=== PATIENT | female | born 1995 | race African-American/Black ===

== ENCOUNTER → 2024-05-04 15:29 | Outpatient (REF) | payer OTHER, SELFPAY | LOC: RAD 15:29 | PROVIDERS: ATTENDING PHYSICIAN Nurse Practitioner Family | DX: Z13.9 Encounter for screening, unspecified (principal) | CPT/HCPCS: 71046 ==

== ENCOUNTER 2024-08-09 10:39 | Emergency (ER) | payer SELFPAY ==
[2024-08-09 10:49] VITALS: BP 127/86
--- NOTE | 2024-08-09 11:17 | ED.GENMED ---
History of Present Illness
General
Chief Complaint: Throat Problem
Source: patient
Exam Limitations: none
Time Seen by Provider: 08/09/24 10:55
Nursing documentation reviewed up to this point in time: agreed with
History of Present Illness
History of Present Illness:
28 y/o F with here with sore throat x 2 days, worse on R and now with R ear pain. she has not had cough or fever
pt's voice is slightly muffled
she says she is having pain with swallowing her secretions but she is not drooling
no h/o [employer]
has had strep throat several times
no chest pain, vomiting, sob
took iburpfoen 5 am
Past History
Past History
ED Past Medical History: Other (strep throat)
Social History
Tobacco: Non-smoker
Alcohol: None
Drug: None
Personal: Single
Living: with family
Employment: Employed
Review of Systems
Review of Systems
Allergies reviewed?: Yes
All Other Systems: Not applicable
Phy Exam
Physical Exam
Physical Exam:
GENERAL: Alert , in no apparent distress
EYE: pupils equal and reactive
NECK: Supple bilateral tender anterior cervical lymphadenopathy
ENT: b/l TM s clear, pharynx erythematous, 3+ tonsils, very slight fullness to the right peritonsillar region, no uvular deviation, bilateral exudate, slight voice muffling, tolerating secretions, swallowing normally
CARDIAC: Regular rate and rhythm, no edema
LUNGS: Clear breath sounds bilaterally, no acute respiratory distress, no wheezes/rales/rhonchi, occ cough
ABDOMEN: Soft, without focal tenderness, no r/g, no cvat, normal bowel sounds
NEUROLOGICAL: Alert and oriented, no focal neuro deficits
SKIN: Warm and dry, skin intact.
MUSCULOSKELETAL: No edema, well perfused.
PSYCH: Normal and appropriate interaction.
Course
Orders/Labs/Results
Orders:
Orders
08/09/24 11:17
0.9% Sodium Chloride 1000 ml [Nss] 1,000 ml IV BOLUS
Dexamethasone Sod Phosphate [Decadron] 10 mg IV NOW STA
Ketorolac [Toradol] 30 mg IV NOW STA
08/09/24 11:31
Rapid Strep Group A Urgent
RAVI Source: Throat/Pharynx
Specimen Description:
Date Specimen was Collected: 08/09/24
Time Specimen was Collected: 11:23
08/09/24 12:10
COVID-19 Antigen Urgent
Source: Nasal Swab
Influenza A+B Rapid Molecular Urgent
RAVI Source: Nasal Swab
Specimen Description:
08/09/24 12:44
Amoxicillin 875 mg/Clav 125 mg [Augmentin 875 mg/125 mg] 1 tablet PO NOW STA
Vital Signs
Initial and Last Documented VS:
Initial Vital Signs
Temp Pulse Resp BP Pulse Ox
36.6 C 85 18 127/86 100
08/09/24 10:49 08/09/24 10:49 08/09/24 10:49 08/09/24 10:49 08/09/24 10:49
Last Documented Vital Signs
Temp Pulse Resp BP Pulse Ox
37.4 C 85 18 142/80 99
08/09/24 13:03 08/09/24 13:03 08/09/24 13:03 08/09/24 13:03 08/09/24 13:03
MDM/Problems Addressed
Differential Diagnosis Includes:
airplane captain, strep, pharyngitis, tonsillitis, viral
MDM/Problems Addressed:
28-year-old female here with sore throat more on the right than the left radiating into her right ear since yesterday. No fever, no cough. Tender swollen glands. On exam she is tolerating secretions well, has a very mild muffling of her voice
with a very minimal asymmetry to the peritonsillar region on the right being slightly zhang but she has bilateral exudate on her tonsils and no uvular deviation,
Her rapid strep was negative but she Centor criteria 3 out of 4 and flu and COVID are negative. I believe she does have the possibility of developing early peritonsillar abscess and will cover her with Augmentin. She was given steroids, Toradol,
IV fluids. Will send her home on a Medrol Dosepak as well.
*Critical Care Note
Total Time (30-74mins, 75-104mins- exclusive of procedures): Not Applicable
ED Attending Note
-
Portions of this chart may have been created with voice recognition software.� Occasional wrong word or��sound alike� substitutions may have occurred due to the inherent limitations of voice recognition software.
Discharge Plan
Departure
Patient Disposition: Home (Routine Discharge)
Date of Disposition: 08/09/24
Time of Disposition: 12:59
Patient with high blood pressure during this ER visit?: No
Condition: Fair
Covid-19: Negative COVID-19
Discharge Problem:
Acute tonsillitis
Instructions: Sore throat in adults - ED discharge instructions
Prescriptions:
New
amoxicillin-pot clavulanate 875-125 mg tablet
1 tab PO BID Qty: 20 0RF
methylprednisolone [Medrol (Chris)] 4 mg tablets,dose pack
See Rx Instructions .ROUTE .COMPLEX Qty: 21 0RF
Rx Instructions:
for 6 days
Referrals:
Sharan Echeverria MD [Active] - Follow up in 2-3 days
UNKNOWN - PT DOES,NOT KNOW [Family Provider] -
Stand Alone Forms: Return to Work
Activity Restrictions/Additional Instructions:
You may have the start of a very small infection in your right tonsil. Your rapid strep and flu and COVID were negative. We are covering you for strep throat and this possible early abscess with Augmentin which she should take twice a day for 10
days. Use ibuprofen every 8 hours and Tylenol every 6 hours for your pain and fevers. Start a Medrol Dosepak tomorrow which will taper your dose of steroids. Make sure to follow directions.
Return for worsening pain, inability to swallow your secretions, high fever or any concerns
You may need to follow-up with ear nose and throat for your tonsils to be removed or to have an evaluation if this infection progresses
Interventions
Interventions:
*Risk Screen - Suicide Last Done: 08/09/24 10:49
*General Assessment Last Done: 08/09/24 10:49
*Neglect/Abuse Screening Last Done: 08/09/24 10:49
ED- Fall Risk Assessment Last Done: 08/09/24 13:14
*ED COVID-19 Vaccine History Last Done: 08/09/24 11:39
*Nursing Disposition Last Done: 08/09/24 13:14
ED-EENT Assessment Last Done: 08/09/24 11:39
ED- Pulmonary Assessment Last Done: 08/09/24 11:39
Discharge Date and Time
Discharge Date/Time: 08/09/24 13:20
Print Language: [id number]
[2024-08-09] MEDS: TORADOL 30 MG IV (11:28)
[2024-08-09] MEDS: DECADRON 10 MG IV (11:29)
[2024-08-09] MEDS: NSS 1000 IV (11:29)
[2024-08-09 12:36] LABS: COVID-19 Antigen Negative (Negative)
[2024-08-09 13:03] VITALS: BP 142/80
[2024-08-09] MEDS: AUGMENTIN 875 MG/125 MG 1 TABLET PO (13:06)
== END 2024-08-09 13:20 | disposition home or self-care (01) ==
LOC: EMR 10:39
PROVIDERS: Physician Assistant; EMERGENCY PHYSICIAN Emergency Medicine
DX: J03.90 Acute tonsillitis, unspecified (principal); Z11.52 Encounter for screening for COVID-19
CPT/HCPCS: 96374; 96375; 96361; 99284; 87070; 87502; 87811; 87880